=== PATIENT | male | born 1950 | race Native Hawaiian/Other Pacific Islander ===

== ENCOUNTER 2023-03-07 22:53 | Emergency (ER) | payer OTHER ==
[~2023-03-07] VITALS: Ht 180.3 cm; Wt 67.6 kg
[2023-03-07 22:55] VITALS: TEMP 97.6
[2023-03-08 00:10] LABS: PLATELET COUNT 220 K/uL (142-355)
[2023-03-08 00:26] LABS: POTASSIUM 4.1 mmol/L (3.6-5.2)
[2023-03-08 01:50] VITALS: BP 146/78
[2023-03-08] MEDS ORDERED: CLON0.1T16 PO (06:56)
[2023-03-08] MEDS ORDERED: HYDR5TAB9 PO (06:57)
[2023-03-08] MEDS ORDERED: HYDROCORTISONE2.5 % TOP (06:58)
[2023-03-08] MEDS ORDERED: LISI10TA11 PO (06:59)
[2023-03-08] MEDS ORDERED: IMODIUM A-D2 MG PO (07:00)
[2023-03-08] MEDS ORDERED: MAGNESIUM CITRATE PO (07:01)
[2023-03-08] MEDS ORDERED: MELATONIN3 M1 PO (07:02)
[2023-03-08] MEDS ORDERED: MIRALAX17 GM PO (07:03)
[2023-03-08] MEDS ORDERED: PROTONIX20 MG PO (07:05)
[2023-03-08] MEDS ORDERED: MULTIVITAMIN-MINERAL PO (07:05)
[2023-03-08] MEDS ORDERED: PROTEIN LIQUID PO (07:07)
[2023-03-08] MEDS ORDERED: SERT100T PO (07:08)
[2023-03-08] MEDS ORDERED: QUETIAPINE PO (07:08)
[2023-03-08] MEDS ORDERED: SILVADENE1 % TOP (07:09)
[2023-03-08] MEDS ORDERED: TYLENOL325 MG PO (07:10)
[2023-03-08] MEDS ORDERED: VITAMIN C1000 MG PO (07:12)
[2023-03-08] MEDS ORDERED: ZINC PO (07:14)
[2023-03-08] MEDS ORDERED: B-122000 MCG PO (07:22)
[2023-03-11] MEDS ORDERED: ACET-206 PO (09:25)
[2023-03-11] MEDS ORDERED: HYDR2.5C36 EX (09:26)
[2023-03-11] MEDS ORDERED: ASCO500T18 PO (09:26)
[2023-03-11] MEDS ORDERED: VITAMIN B-121000 MCG PO (09:26)
[2023-03-11] MEDS ORDERED: CLON0.1T16 PO (09:26)
[2023-03-11] MEDS ORDERED: LEVO0.0529 PO (09:27)
[2023-03-11] MEDS ORDERED: MELATONIN MAXIMU5 MG PO (09:27)
[2023-03-11] MEDS ORDERED: LISI10TA11 PO (09:27)
[2023-03-11] MEDS ORDERED: MAGN400T4 PO (09:27)
[2023-03-11] MEDS ORDERED: BLOOMIS59 PO (09:28)
[2023-03-11] MEDS ORDERED: PANTOPRAZOLE 40MG TA PO (09:28)
[2023-03-11] MEDS ORDERED: MULTTAB52 PO (09:28)
[2023-03-11] MEDS ORDERED: MIRALAX 17GM PAK PO (09:28)
[2023-03-11] MEDS ORDERED: QUET100T2 PO (09:28)
[2023-03-11] MEDS ORDERED: ZINC220C4 PO (09:29)
[2023-03-11] MEDS ORDERED: SERT50TA PO (09:29)
[2023-03-11] MEDS ORDERED: SILV1CRE TOP (09:29)
== END 2023-03-08 01:50 | disposition other institution (70) ==
LOC: ED 22:53
PROVIDERS: Family Medicine
DX: I10 Essential (primary) hypertension (principal); Z02.79 Encounter for issue of other medical certificate
CPT/HCPCS: 36415; 80053; 81000; 85007; 85027; 87635; 93005; 99283; U0003

== ENCOUNTER 2023-03-29 15:17 | Emergency (ER) | payer OTHER ==
[~2023-03-29] VITALS: Ht 172.7 cm; Wt 68.0 kg
[~2023-03-29 15:17] MED LIST: ACET-206 PO; ASCO500T18 PO; B-122000 MCG PO; BLOOMIS59 PO; CEPHALEXIN250 M1 PO; CLON0.1T16 PO; HYDR2.5C36 EX; HYDR5TAB9 PO; HYDROCORTISONE2.5 % TOP; IMODIUM A-D2 MG PO; LEVO0.0529 PO; LISI10TA11 PO; MAGN400T4 PO; MAGNESIUM CITRATE PO; MELATONIN MAXIMU5 MG PO; MELATONIN3 M1 PO; MIRALAX 17GM PAK PO; MIRALAX17 GM PO; MULTIVITAMIN-MINERAL PO; MULTTAB52 PO; PANTOPRAZOLE 40MG TA PO; PROTEIN LIQUID PO; PROTONIX20 MG PO; QUET100T2 PO; QUETIAPINE PO; SERT100T PO; SERT50TA PO; SILV1CRE TOP; SILVADENE1 % TOP; TYLENOL325 MG PO; VITAMIN B-121000 MCG PO; VITAMIN C PO; ZINC PO; ZINC220C4 PO
[2023-03-29 15:50] LABS: POTASSIUM 3.9 mmol/L (3.6-5.2)
[2023-03-29 15:56] LABS: PLATELET COUNT 186 K/uL (142-355)
[2023-03-29 16:07] VITALS: BP 140/99; TEMP 99
[2023-03-29] MEDS ORDERED: MELATONIN5 MG PO (16:56)
[2023-03-29] MEDS ORDERED: SERT50TA PO (16:59)
[2023-03-29] MEDS ORDERED: CALAMIN3 TOP (17:00)
[2023-03-29] MEDS ORDERED: MAGN OXIDE PO (17:02)
[2023-03-29] MEDS ORDERED: O2 (17:03)
[2023-03-29] MEDS ORDERED: QUET100T2 PO (17:06)
[2023-04-01] MEDS ORDERED: ACET-206 PO (08:26)
[2023-04-01] MEDS ORDERED: ASCO500T18 PO (08:27)
[2023-04-01] MEDS ORDERED: CALAMIN3 TOP (08:28)
[2023-04-01] MEDS ORDERED: CEPH250S25 PO (08:29)
[2023-04-01] MEDS ORDERED: CLON0.1T16 PO (08:29)
[2023-04-01] MEDS ORDERED: HYDR5TAB9 PO (08:30)
[2023-04-01] MEDS ORDERED: VITAMIN B-121000 MCG PO (08:30)
[2023-04-01] MEDS ORDERED: LISI10TA11 PO (08:30)
[2023-04-01] MEDS ORDERED: MULTTAB52 PO (08:31)
[2023-04-01] MEDS ORDERED: MELATONIN MAXIMU5 MG PO (08:31)
[2023-04-01] MEDS ORDERED: PANTOPRAZOLE 40MG TA PO (08:32)
[2023-04-01] MEDS ORDERED: QUET100T2 PO (08:32)
[2023-04-01] MEDS ORDERED: SILV1CRE TOP (08:33)
[2023-04-01] MEDS ORDERED: SERT50TA PO (08:33)
[2023-04-01] MEDS ORDERED: ZINC220C4 PO (08:34)
== END 2023-03-29 16:07 | disposition still patient (30) ==
LOC: ED 15:17
PROVIDERS: Family Medicine
DX: R45.6 Violent behavior (principal); Z02.79 Encounter for issue of other medical certificate
CPT/HCPCS: 80053; 81000; 85027; 87635; 93005; 99283; U0003